=== PATIENT | female | born 1945 | race Caucasian/White ===

== ENCOUNTER → 2017-10-28 | Outpatient (CLI) | payer MEDICARE ==
[~2017-10-28] MED LIST: ASPIRIN81 M3 PO; CALCIUM600 M1 PO; CARVEDILOL3.125 MG PO; DIGOXIN PO; DIGOXIN125 MCG; LANOXIN125 MCG PO; LOVENOX40 MG/0.4 SC; MONTELUKAST PO; MONTELUKAST SOD10 MG PO; NORCO 7.5-3251 EACH PO; PRAVASTATIN SOD40 MG; PROAIR HFA8.5 G1 INH; SPIRONOLACTONE25 MG PO; SUPER B COMPLEX; TRAMADOL100 MG; ULTRAM50 MG PO; VITAMIN; VITAMIN C; VITAMIN D; VITAMIN D3; Z VITAMIN C PO; Z.0.KLOR-CON20 MEQ PO; Z.0.LASIX40 MG PO; Z.0.LOSARTAN POTASS5 PO; Z.0.MULTIVITAMINS1 E PO; Z.0.OMEGA 3 FISH O1 PO; Z.0.PRILOSEC OTC20 M PO; Z.0.SIMVASTATIN40 MG PO; Z.0.SYNTHROID25 MCG PO; Z.0.VITAMIN D1000 UN PO; Z.0.ZYRTEC10 M3 PO; [UNRECOGNIZED DRUG - OTHER] IH
--- NOTE | 2017-10-31 14:57 | Diagnostic Imaging Report ---
Examination: MRI SPINE LUMBAR WITHOUT CONTRAST History: Low back pain radiating down the hips and lower extremities. Comparison studies: None Technique: Sagittal, coronal and axial T2 , sagittal T1 and STIR; axial spin density oblique. Findings: Number of lumbar vertebral bodies: Five. Alignment: Normal lordosis. Mild rightward curvature centered at L1-L2. Soft tissues: No T2 hyperintense inflammatory changes. Posterior paraspinal soft tissues and muscles: No abnormality. Lower thoracic cord: Normal in signal and morphology. The tip of the conus is at T12-L1. Cauda equina: No masses. No arachnoiditis. Vertebrae: No fractures, infection or neoplasm. Degenerative changes: L1-L2: Mild retrolisthesis. Asymmetric to the left disc bulge and moderate right and severe left facet arthropathy result in moderate right and severe left neural foraminal narrowing and moderate canal stenosis. L2-L3: Mild retrolisthesis. Asymmetric to the left disc bulge, moderate ligamentum flavum thickening and mild bilateral facet arthropathy result in moderate left neural foraminal narrowing and severe canal stenosis. No right foraminal narrowing. L3-L4: Diffuse disc bulge, mild ligamentum flavum thickening and mild bilateral facet arthropathy result in mild bilateral neural foraminal narrowing and severe canal stenosis. L4-L5: Grade I anterolisthesis without pars defect. Uncovering of a diffuse disc bulge, mild ligamentum flavum thickening and severe bilateral facet arthropathy result in severe canal stenosis and mild bilateral neural foraminal narrowing. L5-S1: Moderate bilateral facet arthropathy. No degenerative disc or foraminal or canal stenosis. IMPRESSION: 1. Degenerative changes from L1-L2 through L5-S1 with severe canal stenosis from L1-L2 through L4-L5. 2. Moderate right and severe left foraminal narrowing at L1-L2 and moderate left foraminal narrowing at L2-L3. 3. Mild retrolisthesis of L1 on L2 and L2 on L3 and degenerative grade I anterolisthesis of L4 on L5. Signed by: Dr. Mikaela Aguirre M.D. on 10/31/2017 2:53 PM
== END ==
LOC: MRI 08:10
PROVIDERS: ATTEND Family Medicine
DX: M54.16 Radiculopathy, lumbar region (principal)
CPT/HCPCS: 72148

== ENCOUNTER 2017-11-10 08:19 | Observation (INO) | payer MEDICARE ==
[2017-11-09 10:12] LABS: BASOPHILS # (AUTO) 0.1 (0.0-0.1); BASOPHILS % 0.8 % (0.0-1.0); EOSINOPHILS # (AUTO) 0.1 (0.0-0.4); EOSINOPHILS % 1.7 % (0.0-6.0); HEMATOCRIT 39.2 % (34.2-44.1); HEMOGLOBIN 13.6 g/dL (12.0-16.0); LYMPHOCYTES # (AUTO) 2.3 (1.0-3.2); LYMPHOCYTES % 34.7 % (18.0-39.1); MEAN CORPUSCULAR HEMOGLOBIN 31.6 pg (28-32); MEAN CORPUSCULAR HGB CONC 34.7 g/dL (31-35); MONOCYTES # (AUTO) 0.7 (0.2-0.8); MONOCYTES % 10.2 % (4.4-11.3); NEUTROPHILS # (AUTO) 3.4 (2.1-6.9); NEUTROPHILS % 52.3 % (38.7-80.0); PLATELET COUNT 279 x10e3/uL (140-360); RED BLOOD COUNT 4.31 x10e6/uL (3.6-5.1); RED CELL DISTRIBUTION WIDTH 12.3 % (11.7-14.4)
--- NOTE | 2017-11-09 10:17 | Diagnostic Imaging Report ---
PROCEDURE: Frontal and lateral views of the chest. COMPARISON: Chest 2 views 01/25/2014. INDICATIONS: PRE OPERATIVE CHEST X-RAY FOR BACK SURGERY FINDINGS: Lines/tubes: None. Lungs: The lungs are well inflated and clear. There is no evidence of pneumonia or pulmonary edema. Pleura: There is no pleural effusion or pneumothorax. Heart and mediastinum: The heart and the mediastinum are normal. Bones: No acute bony abnormality. Degenerative changes of the thoracic spine. Soft tissues: Surgical clips are present in the right axilla. IMPRESSION: No acute radiographic abnormality. Dictated by: Eldon Graves M.D. on 11/09/2017 at 10:18 Electronically approved by: Eldon Graves M.D. on 11/09/2017 at 10:18
[2017-11-09 10:25] LABS: INR 0.98; PARTIAL THROMBOPLASTIN TIME 29.7 seconds (23.8-35.5); PROTHROMBIN TIME 12.2 seconds (11.9-14.5)
[2017-11-09 10:32] LABS: ANION GAP 16.8 mmol/L (8-16); BLOOD UREA NITROGEN 17 mg/dL (7-26); BUN/CREATININE RATIO 24 (6-25); CALCIUM 10.6 mg/dL (8.4-10.2); CARBON DIOXIDE 32 mmol/L (22-29); CHLORIDE 97 mmol/L (98-107); CREATININE, SERUM 0.71 mg/dL (0.57-1.11); EST GLOMERULAR FILTRATION RATE > 60 ML/MIN (60-); GLUCOSE 98 mg/dL (74-118); POTASSIUM 3.8 mmol/L (3.5-5.1); SODIUM 142 mmol/L (136-145)
[~2017-11-10] VITALS: Ht 167.6 cm; Wt 86.6 kg
[~2017-11-10 08:19] MED LIST changes: +ACETAMINOPHEN 1000 MG/100 ML 100 ML IV ONE; +BACITRACIN 50,000 UNIT VIAL ONE; +BUPIVACAINE 0.5%/EPI 30 ML SDV INJ ONE; +GELATIN SPONGE SZ 100 ONE; +LIDOCAINE HCL (LTA) 4 ML SOLN ONE; +THROMBIN FOR SOLN 5,000 UNIT VIAL ONE
--- OUTSIDE RECORDS SUMMARY | 2017-11-10 08:22 | XMS REPORT ---
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 Allergies, Adverse Reactions, Alerts This patient has no known allergies or adverse reactions. Medications This patient has no known medications. Results Test Description Test Time Test Comments Text Results Atomic Results Result Comments CHEST 2 VIEWS [facility] [address] [address] Patient Name: GUERA KEATING MR #: [id number] : 1945 Age/Sex: 72/F Req # : [id number] [facility] Physician: Ordered by: JOHANNA COFFEY MD Report #: [id number] Location: OR Room/Bed: Procedure: [id number] DX/CHEST 2 VIEWS Exam Date: 11/09/17 Exam Time: 0940 REPORT STATUS: Signed PROCEDURE: Frontal and lateral views of the chest. COMPARISON: Chest 2 views 01/25/2014. INDICATIONS: PRE OPERATIVE CHEST X-RAY FOR BACK SURGERY FINDINGS: Lines/tubes: None. Lungs: The lungs are well inflated and clear. There is no evidence of pneumonia or pulmonary edema. Pleura: There is no pleural effusion or pneumothorax. Heart and mediastinum: The heart and the mediastinum are normal. Bones: No acute bony abnormality. Degenerative changes of the thoracic spine. Soft tissues: Surgical clips are present in the right axilla. IMPRESSION: No acute radiographic abnormality. Dictated by: Chelsey Ortega M.D. on 11/09/2017 at 10:18 Electronically approved by: Chelsey Ortega M.D. on 11/09/2017 at 10:18 Dictated By : CHELSEY ORTEGA MD [id number] Transcribed By: MICHEL on 11/09/17 1018 COPY TO: JOHANNA COFFEY MD MRI SPINE LUMBAR [place] [address] Patient Name: GUERA KEATING MR #: [id number] : 1945 Age/Sex: 72/F Req #: [id number] Adm Physician: Ordered by: VALERI MCMAHON MD Report #: [id number] Location: MRI Room/Bed: Procedure: [id number] MRI/MRI SPINE LUMBAR WO Exam Date: Exam Time: REPORT STATUS: Signed Examination: MRI SPINE LUMBAR WITHOUT CONTRAST History: Low back pain radiating down the hips and lower extremities. Comparison studies: None Technique: Sagittal, coronal and axial T2 , sagittal T1 and STIR; axial spin density oblique. Findings: Number of lumbar vertebral bodies: Five. Alignment: Normal lordosis. Mild rightward curvature centered at L1-L2. Soft tissues: No T2 hyperintense inflammatory changes. Posterior paraspinal soft tissues and muscles: No abnormality. Lower thoracic cord: Normal in signal and morphology. The tip of the conus is at T12-L1. Cauda equina: No masses. No arachnoiditis. Vertebrae: No fractures, infection or neoplasm. Degenerative changes: L1-L2: Mild retrolisthesis. Asymmetric to the left disc bulge and moderate right and severe left facet arthropathy result in moderate right and severe left neural foraminal narrowing and moderate canal stenosis. L2-L3: Mild retrolisthesis. Asymmetric to the left disc bulge, moderate ligamentum flavum thickening and mild bilateral facet arthropathy result in moderate left neural foraminal narrowing and severe canal stenosis. No right foraminal narrowing. L3-L4: Diffuse disc bulge, mild ligamentum flavum thickening and mild bilateral facet arthropathy result in mild bilateral neural foraminal narrowing and severe canal stenosis. L4-L5: Grade I anterolisthesis without pars defect. Uncovering of a diffuse disc bulge, mild ligamentum flavum thickening and severe bilateral facet arthropathy result in severe canal stenosis and mild bilateral neural foraminal narrowing. L5-S1: Moderate bilateral facet arthropathy. No degenerative disc or foraminal or canal stenosis. IMPRESSION: 1. Degenerative changes from L1-L2 through L5-S1 with severe canal stenosis from L1-L2 through L4-L5. 2. Moderate right and severe left foraminal narrowing at L1-L2 and moderate left foraminal narrowing at L2-L3. 3. Mild retrolisthesis of L1 on L2 and L2 on L3 and degenerative grade I anterolisthesis of L4 on L5. Signed by: Dr. Mikaela Aguirre M.D. on 2017 2:53 PM Dictated By: MIKAELA CARREON MD [id number] Transcribed By: DENISE on 10/31/17 [id number] COPY TO: VALERI MCMAHON MD
[2017-11-10] MEDS ORDERED: CEFAZOLIN SOD 1 GM VIAL ONE (09:16)
[2017-11-10] MEDS: LACTATED RINGER'S 1,000 ML IV SCH ×2 (12:29→23:02)
[2017-11-10] MEDS ORDERED: PROMETHAZINE HCL (IM) 25 MG/ML VIAL IM PRN (12:30)
[2017-11-10] MEDS ORDERED: MAGNESIUM/ALUMINUM/SIMETHICONE 30 ML UDC PO PRN (12:30)
[2017-11-10] MEDS ORDERED: ACETAMINOPHEN 325 MG TAB PO PRN (12:30)
[2017-11-10] MEDS ORDERED: HYDROMORPHONE 2MG/ML INJ IV PRN (12:30)
[2017-11-10] MEDS ORDERED: ZOLPIDEM TARTRATE 5 MG TAB PO PRN (12:30)
[2017-11-10] MEDS ORDERED: MORPHINE SULFATE 5 MG/ML VIAL IM PRN (12:30)
[2017-11-10] MEDS ORDERED: NON-FORMULARY MEDICATION (Losartan Potassium 50 MG) PO SCH (12:30)
[2017-11-10] MEDS ORDERED: TRAMADOL HCL 50 MG TAB PO PRN (12:30)
[2017-11-10] MEDS ORDERED: FENTANYL CITRATE/PF 100MCG/2 ML INJ ONE ×2 (12:41→18:55)
[2017-11-10] MEDS ORDERED: HYDROMORPHONE 1MG/1ML INJ ONE (13:21)
[2017-11-10] MEDS ORDERED: CEFAZOLIN SOD 1 GM/NS 50ML 50 ML IV SCH (14:00)
[2017-11-10] MEDS: CARISOPRODOL 350 MG TAB PO PRN (14:27)
[2017-11-10] MEDS: OXYCODONE/ACETAMINOPHEN 5-325 1 EACH TABLET PO PRN ×2 (14:28→20:25)
[2017-11-10 14:32] VITALS: BP 147/65
[2017-11-10] MEDS: ONDANSETRON HCL INJ 2 MG/ML VIAL IV PRN ×2 (14:56→20:25)
--- NOTE | 2017-11-10 15:04 | Operative Report ---
DATE OF PROCEDURE: November 10, 2017 PREOPERATIVE DIAGNOSIS: L2-3 severe spinal stenosis with neurogenic claudication, M48.062. POSTOPERATIVE DIAGNOSIS: L2-3 severe spinal stenosis with neurogenic claudication, M48.062. PROCEDURES: 1. L2 bilateral decompressive laminectomy and L3-4 bilateral medial facetectomies, 49591. 2. L3 bilateral partial decompressive laminectomy, 93186. ANESTHESIA: General. INDICATIONS: The patient is an elderly woman who presents with severe spinal stenosis at L2-3 with marked crowding of the cauda equina. She was taken to the operating room for L2-3 bilateral decompressive laminectomy. PROCEDURE: After the induction of general anesthesia, the patient was placed on the operating table in prone position over a Jeremie frame. The lumbar region was prepped and draped in sterile fashion. A preoperative x-ray was obtained. A small midline incision was created. The lumbar fascia was opened along the midline, and a subperiosteal dissection was carried out to expose the L2 and L3 spinous processes and laminae and medial aspect of the L2-3 facet joints. A 2nd x-ray confirmed correct localization. Portions of the spinous processes were resected. A high-speed drill equipped with a 5 mm gin bur was used to drill the inferior two thirds of the lamina of L2 and the superior one third of the lamina of L3 and the medial rim of the L2-3 facet joints bilaterally. The markedly hypertrophic ligamentum flavum was resected, and the dural sac and the L3 traversing nerve roots were fully exposed and decompressed. Meticulous hemostasis was secured. The retractor was removed. The lumbar fascia was closed with 0 Vicryl sutures. Subcutaneous layer was closed with 2-0 Vicryl sutures. The skin was closed with jacquelyn. A dressing was applied. The patient was awakened, extubated and taken to the postanesthesia care unit in stable condition. No intraoperative complications were encountered. Estimated blood loss was 10 mL. Job#: [id number]
[2017-11-10 16:10] VITALS: BP 128/57
[2017-11-10 16:16] VITALS: BP 128/57
[2017-11-10] MEDS ORDERED: NON-FORMULARY MEDICATION (Calcium Carbonate (Calcium) 600 MG) PO SCH (17:00)
[2017-11-10] MEDS ORDERED: NON-FORMULARY MEDICATION (Ascorbic Acid (Vitamin C) 500 MG) PO SCH (17:00)
[2017-11-10] MEDS: HYDROMORPHONE 1MG/1ML INJ IV PRN (17:42)
[2017-11-10] MEDS ORDERED: ONDANSETRON HCL INJ 2 MG/ML VIAL ONE (18:07)
[2017-11-10] MEDS ORDERED: SEVOFLURANE INHAL SOLN 250 ML PEN BTL ONE (18:07)
[2017-11-10] MEDS ORDERED: LIDOCAINE HCL 2% LOCAL INJ 5 ML SDV VIAL INJ ONE (18:07)
[2017-11-10] MEDS ORDERED: ROCURONIUM BROMIDE 10 MG/ML 5ML VIAL ONE (18:07)
[2017-11-10] MEDS ORDERED: GLYCOPYRROLATE INJ 1MG/ 5 ML SYR ONE (18:07)
[2017-11-10] MEDS ORDERED: PROPOFOL IV EMULSION 10 MG/ML 20 ML VIAL ONE (18:07)
[2017-11-10] MEDS ORDERED: NEOSTIGMINE 5 MG/5ML SYR ONE (18:07)
[2017-11-10] MEDS ORDERED: DEXAMETHASONE SOD PHOS INJ 4 MG/ML VIAL ONE (18:07)
[2017-11-10] MEDS ORDERED: CEPACOL SORE THROAT LOZENGES PO PRN (18:15)
[2017-11-10] MEDS: OYST-CAL-D 500MG TABLET PO SCH (18:19)
[2017-11-10] MEDS: CARVEDILOL 3.125 MG TAB PO SCH (18:19)
[2017-11-10] MEDS: CEFAZOLIN SOD 1 GM VIAL IV SCH (18:19)
[2017-11-10] MEDS: ASCORBIC ACID 500 MG TAB PO SCH (18:19)
[2017-11-10 18:37] VITALS: BP 128/57
[2017-11-10] MEDS ORDERED: MIDAZOLAM HCL 2 MG/2 ML VIAL ONE (18:55)
[2017-11-10 20:00] VITALS: BP 140/63
[2017-11-10 21:00] VITALS: BP 140/63
[2017-11-11] VITALS: BP 106/53
[2017-11-11] MEDS: HYDROMORPHONE 1MG/1ML INJ IV PRN (00:55)
[2017-11-11] MEDS: ONDANSETRON HCL INJ 2 MG/ML VIAL IV PRN (00:55)
[2017-11-11] MEDS: CEFAZOLIN SOD 1 GM VIAL IV SCH ×2 (02:02→10:06)
[2017-11-11 04:00] VITALS: BP 114/55
[2017-11-11] MEDS: CARISOPRODOL 350 MG TAB PO PRN (04:58)
[2017-11-11] MEDS ORDERED: [UNRECOGNIZED DRUG - OTHER] PO SCH (09:00)
[2017-11-11] MEDS ORDERED: LEVOTHYROXINE SODIUM 25 MCG TABLET PO SCH (09:00)
[2017-11-11] MEDS ORDERED: LORATADINE 10 MG TAB PO SCH (09:00)
[2017-11-11] MEDS ORDERED: LOSARTAN POTASSIUM 25 MG TAB PO SCH (09:00)
[2017-11-11] MEDS ORDERED: FATTY ACIDS PO SCH (09:00)
[2017-11-11] MEDS ORDERED: SPIRONOLACTONE 25 MG TAB PO SCH (09:00)
[2017-11-11] MEDS ORDERED: NON-FORMULARY MEDICATION (Cetirizine Hcl (Zyrtec) 10 MG) PO SCH (09:00)
[2017-11-11] MEDS ORDERED: DIGOXIN 0.125 MG TAB PO SCH (09:00)
[2017-11-11] MEDS ORDERED: OMEGA 3 POLYUNSAT FATTY ACIDS 1000 MG SOFTGEL PO SCH (09:00)
[2017-11-11] MEDS ORDERED: FISH OIL PO SCH (09:00)
[2017-11-11] MEDS ORDERED: OMEGA PO SCH (09:00)
[2017-11-11] MEDS ORDERED: FUROSEMIDE 40 MG TAB PO SCH (09:00)
[2017-11-11 09:01] VITALS: BP 124/60
[2017-11-11] MEDS: CARVEDILOL 3.125 MG TAB PO SCH (10:05)
[2017-11-11] MEDS: OYST-CAL-D 500MG TABLET PO SCH (10:06)
[2017-11-11] MEDS: ASCORBIC ACID 500 MG TAB PO SCH (10:06)
[2017-11-11] MEDS: OXYCODONE/ACETAMINOPHEN 5-325 1 EACH TABLET PO PRN (10:07)
[2017-11-11] MEDS ORDERED: NORCO 7.5-3251 EACH PO (10:17)
== END 2017-11-11 11:05 | disposition home or self-care (01) ==
LOC: OR 08:19 → IMCU 13:45
PROVIDERS: ADMIT Neurological Surgery; ATTEND Neurological Surgery
DX: M48.062 Spinal stenosis, lumbar region with neurogenic claudication (principal); I10 Essential (primary) hypertension; E78.5 Hyperlipidemia, unspecified; E03.9 Hypothyroidism, unspecified; Z85.3 Personal history of malignant neoplasm of breast; G95.19 Other vascular myelopathies
CPT/HCPCS: 36415; 63047; 63048; 71046; 72020; 80048; 85025; 85610; 85730; 86850; 86900; 88304; 88311; 93005; G0378 ×2; J0690 ×2; J1100; J1170 ×2; J2001; J2250; J2405 ×2; J2550; J7120; J2270

== ENCOUNTER → 2025-06-25 | Outpatient (REF) | payer MEDICARE ==
[~2025-06-25] MED LIST changes: -ACETAMINOPHEN 1000 MG/100 ML 100 ML IV ONE; -BACITRACIN 50,000 UNIT VIAL ONE; -BUPIVACAINE 0.5%/EPI 30 ML SDV INJ ONE; +CEFDINIR300 MG PO; -GELATIN SPONGE SZ 100 ONE; -LIDOCAINE HCL (LTA) 4 ML SOLN ONE; -THROMBIN FOR SOLN 5,000 UNIT VIAL ONE
== END ==
LOC: MRI 08:52
PROVIDERS: ATTEND Family Medicine
DX: M54.12 Radiculopathy, cervical region (principal)
CPT/HCPCS: 72141